=== PATIENT | male | born 1955 | race Caucasian/White ===

== ENCOUNTER → 2018-01-31 | Outpatient (CLI) | payer BC | END | disposition home or self-care (01) | LOC: PCVCIMAG 13:43 | DX: I08.2 Rheumatic disorders of both aortic and tricuspid valves (principal); R00.2 Palpitations; C85.90 Non-Hodgkin lymphoma, unspecified, unspecified site; G47.30 Sleep apnea, unspecified | CPT/HCPCS: 93017; 93306 ==

== ENCOUNTER → 2019-07-02 | Outpatient (CLI) | payer BC ==
--- NOTE | 2019-07-02 12:59 | PCVCIMAG ---
APPROVED REPORT Laterality: Bilateral Patient Location: Out-Patient Indications CVA/TIA: Doppler Spectral Velocity Analysis PSV / EDVPSV / EDV ECA (R) 81 / 0 cm/sECA (L) 80 / 10 cm/s dICA (R) 72 / 21 cm/sdICA (L) 53 / 22 cm/s Tonya (R) 81 / 20 cm/smICA (L) 83 / 29 cm/s pICA (R) 51 / 14 cm/spICA (L) 78 / 27 cm/s Bulb (R) 50 / 7 cm/sBulb (L) 68 / 10 cm/s dCCA (R) 50 / 9 cm/sdCCA (L) 67 / 10 cm/s mCCA (R) 125 / 9 cm/smCCA (L) 95 / 14 cm/s Vert (R) 67 / 10 cm/sVert (L) 48 / 6 cm/s ICA/CCA 1.62 ICA/CCA 1.24 Findings The right carotid bulb has mild plaque. The right proximal internal carotid artery shows no significant stenosis. The right common carotid artery shows no significant stenosis. The right external carotid artery shows no significant stenosis. The left carotid bulb has moderate plaque. The left proximal internal carotid artery shows <40% stenosis. The left common carotid artery shows no significant stenosis. The left external carotid artery shows no significant stenosis. Conclusion 1. Right internal carotid artery plaquing without significant stenosis. 2. Left internal carotid artery stenosis (<40%) 3. Antegrade vertebral flow
--- NOTE | 2019-07-02 15:04 | PCVCIMAG ---
APPROVED REPORT Study performed: 07/02/2019 10:19:42 EXAM: Comprehensive 2D, Doppler, and color-flow Echocardiogram Patient Location: Echo lab Room #: 2Status: routine BSA: 1.85 HR: 48 bpmBP: 140/78 mmHg Rhythm: Sinus Bradycardia Other Information Study Quality: Good Indications Aortic Valve Disease Bicuspid aortic valve 2D Dimensions IVSd: 9.02 (7-11mm)LVOT Diam: 20.24 (18-24mm) LVDd: 52.74 mm PWd: 9.70 (7-11mm) LVDs: 36.26 (25-40mm) Left Atrium: 34.87 (27-40mm) Aortic Root: 23.08 mm LV Single Plane 4CH: 64.81 % LV Single Plane 2CH: 65.86 % Biplane EF: 65.9 % Volumes Left Atrial Volume (Systole) Single Plane 4CH: 71.90 mLSingle Plane 2CH: 91.80 mL Biplane LA Volume: 87.00 mLLA ESV Index: 47.00 mL/m2 Aortic Valve AoV Peak Abram.: 5.08 m/s AO Peak Gr.: 103.29 mmHgLVOT Max P.20 mmHg AO Mean Gr.: 64.31 mmHgLVOT Mean P.60 mmHg AO V2 Mean: 3.82 m/sLVOT Max V: 1.22 m/s AO V2 VTI: 141.72 cmLVOT Mean V: 1.06 m/s LEONELA (VTI): 0.82 [id number] V1 VTI: 36.20 cm LEONELA Vmax: 0.77 cm2 AI Vmax: 5.20 m/sSV (LVOT): 116.39 mL AI Burt: 3.28 m/s2 AI PHT: 464.76 ms Mitral Valve E/A Ratio: 1.1 MV Decel. Time: 229.08 ms MV E Max Abram.: 0.57 m/s MV A Abram.: 0.52 m/s IVRT: 96.89 ms TDI E/Lateral E': 9.50E/Medial E': 8.14 Medial E' Abram.: 0.07 m/s Lateral E' Abram.: 0.06 m/s Pulmonary Valve PV Peak Abram.: 0.81 m/sPV Peak Gr.: 2.61 mmHg Pulmonary Vein P Vein S: 0.47 m/sP Vein A: 0.27 m/s P Vein D: 0.27 m/sP Vein A Dur.: 93.4 msec P Vein S/D Ratio: 1.74 Tricuspid Valve TR Peak Abram.: 2.10 m/s TR Peak Gr.: 17.60 mmHg TV Vmax: 0.50 m/sPA Pressure: 25.00 mmHg Left Ventricle The left ventricle is normal size. There is normal LV segmental wall motion. There is normal left ventricular wall thickness. Left ventricular systolic function is normal. The left ventricular ejection fraction is within the normal range. LVEF is 65-70%. Right Ventricle The right ventricle is normal size. The right ventricular systolic function is normal. Atria Left atrium is moderately dilated. The right atrium size is normal. Aortic Valve Aortic valve is probably bicuspid. Heavy calcification with severely limited leaflet excursion limits leadflet identification. There is an eccentric jet of aortic insufficiency directed against the septum. Moderate aortic regurgitation. Severe aortic stenosis. Highest mean aortic valve gradient is 64 mmHg. Peak aortic valve gradient is 103_mmHg. Calculated LEONELA by the continuity equation is 0.8_cm2. Mitral Valve The mitral valve is normal in structure. Trace mitral regurgitation. No evidence of mitral valve stenosis. Tricuspid Valve The tricuspid valve is normal in structure. Mild tricuspid regurgitation with a PA pressure of 25 mmHg. Pulmonic Valve The pulmonary valve is normal in structure. There is no pulmonic valvular regurgitation. Great Vessels The aortic root is normal in size. Ascending aorta is not well visualized. Aortic arch is normal in caliber. IVC is normal in size and collapses >50% with inspiration. Pericardium There is no pericardial effusion. There is no pleural effusion. <Conclusion> The left ventricle is normal size. LVEF is 65-70%. The right ventricle is normal size. Left atrium is moderately dilated. Aortic valve is probably bicuspid. Heavy calcification with severely limited leaflet excursion limits leadflet identification. There is an eccentric jet of aortic insufficiency directed against the septum. Moderate aortic regurgitation. Severe aortic stenosis. Highest mean aortic valve gradient is 64 mmHg. Peak aortic valve gradient is 103_mmHg. Calculated LEONELA by the continuity equation is 0.8_cm2. Trace mitral regurgitation. Trace mitral regurgitation. Mild tricuspid regurgitation with a PA pressure of 25 mmHg. The aortic root is normal in size. There is no pericardial effusion.
== END | disposition home or self-care (01) ==
LOC: PCVCIMAG 10:18
PROVIDERS: ATTEND Internal Medicine Cardiovascular Disease
DX: I65.23 Occlusion and stenosis of bilateral carotid arteries (principal); R09.89 Other specified symptoms and signs involving the circulatory and respiratory systems; E78.00 Pure hypercholesterolemia, unspecified; D69.6 Thrombocytopenia, unspecified; I35.0 Nonrheumatic aortic (valve) stenosis; C62.90 Malignant neoplasm of unspecified testis, unspecified whether descended or undescended; R01.1 Cardiac murmur, unspecified; Z92.21 Personal history of antineoplastic chemotherapy; Z88.0 Allergy status to penicillin; Z72.89 Other problems related to lifestyle; Z79.899 Other long term (current) drug therapy
CPT/HCPCS: 93306; 93880

== ENCOUNTER → 2019-07-21 | Outpatient (CLI) | payer BC ==
--- NOTE | 2019-07-22 16:14 | PCVCIMAG ---
APPROVED REPORT Patient Location: Echo lab- [facility]ESS TEST Room #: 2 Stress Nurse: Justina Ledesma RN INDICATIONS: Exercise capacity in the setting of severe aortic stenosis The patient exercised according to the DWIGHT protocol for 14:31 mins; achieving a work level of 17.2 METS. The resting heart rate of 65bpm milind to a maximum heart rate of 169 bpm. This value represent 106% of the maximal, age-predicted heart rate. The resting blood pressure of 132/74 mmHg, milind to a maximum blood pressure of 172/84 mmHg. The exercise test was stopped due to fatigue. Conclusion #1 patient stopped secondary to fatigue and shortness of breath no reproduction of syncope or presyncope noted #2 nondiagnostic EKG although significant ST depression noted but baseline abnormalities decrease the accuracy and this is previously noted. No significant ectopy #3 excellent exercise tolerance 1431 on a Dwight protocol with an appropriate hemodynamic response. Regulations plan this test done for functional capacity. Has severe aortic valve stenosis. He remains asymptomatic. We'll continue to follow closely with both echo and stress testing for functional capacity.
== END | disposition home or self-care (01) ==
LOC: PCVCIMAG 13:49
PROVIDERS: ATTEND Internal Medicine Cardiovascular Disease
DX: I35.0 Nonrheumatic aortic (valve) stenosis (principal)
CPT/HCPCS: 93017